=== PATIENT | male | born 1945 | race Caucasian/White ===

== ENCOUNTER 2018-12-24 10:13 | Emergency (ER) | payer MEDICARE, OTHER ==
[2018-12-24] MEDS ORDERED: KETOROLAC TROMETHAMINE 60 MG/2 ML VIAL ONE (10:31)
== END 2018-12-24 11:12 | disposition home or self-care (01) ==
LOC: EDH 10:13
DX: M17.11 Unilateral primary osteoarthritis, right knee (principal); I10 Essential (primary) hypertension; J45.909 Unspecified asthma, uncomplicated
CPT/HCPCS: 73562; 96372; 99283; J1885